=== PATIENT | male | born 1970 | race Caucasian/White ===

== ENCOUNTER → 2016-06-13 | Outpatient (CLI) | payer OTHER ==
--- NOTE | 2016-06-13 11:52 | US ---
Ultrasound Abdomen Complete. Clinical Indication Weight gain evaluate for fatty liver. TECHNIQUE: Grayscale and color imaging of the abdomen. FINDINGS: Pancreas is unremarkable. The aorta tapers normally from 20 to 16 mm. Liver is elongated at 18.1 cm. Echogenicity is slightly increased. Gallbladder wall is normal at 2 mm. Common bile duct is normal at 3 mm. No sonographic Monteiro sign. The right kidney measures 6.4 x 6.4 x 10.3 cm with a 1.9 cm cortex. IMPRESSION: Fatty infiltration of the liver.
== END ==
LOC: CIMAGING 08:57
PROVIDERS: ATTEND Internal Medicine
DX: K76.0 Fatty (change of) liver, not elsewhere classified (principal)
CPT/HCPCS: 76700-PO